=== PATIENT | male | born 1960 | race Caucasian/White ===

== ENCOUNTER 2021-01-01 18:41 | Emergency (ER) | payer BC, OTHER ==
[2021-01-01 19:00] LABS: HEMOGLOBIN 14.8 gm/dl (14.0-17.5); RED BLOOD COUNT 4.65 M/UL (4.20-5.50); WHITE BLOOD COUNT 7.2 K/UL (4.5-11.0)
[2021-01-01 19:21] LABS: BUN/CREATININE RATIO 19 (0-10)
== END 2021-01-01 22:06 | disposition home or self-care (01) ==
LOC: ER1 18:41
PROVIDERS: Preventive Medicine Occupational Medicine
DX: R06.00 Dyspnea, unspecified (principal); R06.89 Other abnormalities of breathing; E86.0 Dehydration; Z88.6 Allergy status to analgesic agent
CPT/HCPCS: 36600; 71045; 80053; 82550; 82553; 82803; 83605; 83690; 83874; 84484; 85025; 85610; 85652; 85730; 86140; 93005; 94664; 96374; 99285; J2060; Q9967